=== PATIENT | female | born 1960 | race Caucasian/White ===

== ENCOUNTER 2021-02-22 07:39 | Outpatient (CLI) | payer MEDICAID, SELFPAY ==
--- NOTE | 2021-02-22 | XR_ITS ---
WS: [id number] Chest 2 views, 02/22/2021 Clinical Data: COPD MODERATE Comparison: PA and lateral chest, 03/03/2017. Findings: No nodules, masses or effusions are seen. The heart is enlarged. The pulmonary vascularity is not increased. No pneumonia or pneumothorax is seen. There is a hiatal hernia behind the heart. Th e aortic arch and descending aorta show calcification and tortuosity. There are left hilar and left l ower lobe calcifications. There are clips in the right upper quadrant from a cholecystectomy. XR/XR chest 2V* [id number] Impression: 1. Cardiomegaly and atherosclerosis. 2. Hiatal hernia.
== END 2021-02-22 07:40 | disposition home or self-care (01) ==
LOC: RADOUTREAD 02-23 07:41
PROVIDERS: PCP Family Medicine; Visit Provider Family Medicine
DX: J44.9 Chronic obstructive pulmonary disease, unspecified (principal); I51.7 Cardiomegaly; K44.9 Diaphragmatic hernia without obstruction or gangrene; I70.90 Unspecified atherosclerosis
CPT/HCPCS: 71046

== ENCOUNTER 2021-04-18 12:41 | Outpatient (CLI) | payer MEDICAID, SELFPAY ==
--- NOTE | 2021-04-18 12:48 | USCV_ITS ---
Wen Burch Age: 61 Gender: F : 1960 Exam Date: 04/18/2021 13:07 Ordering Phys: Jahaira Lu MD Technologist: Eri Wilder Exam Location: [facility] [place] Indication: CARDIOMEGALY, SOB BP: 120 / 80 HR: 76 Rhythm: Sinus Technical Quality: Technically difficult study MEASUREMENTS (Male / Female) Normal Values 2D ECHO LV Diastolic Diameter PLAX 4.6 cm 4.2 - 5.9 / 3.9 - 5.3 cm LV Systolic Diameter PLAX 2.9 cm IVS Diastolic Thickness 1.1 cm 0.6 - 1.0 / 0.6 - 0.9 cm IVS Systolic Thickness 1.9 cm LVPW Diastolic Thickness 1.2 cm 0.6 - 1.0 / 0.6 - 0.9 cm LVPW Systolic Thickness 1.7 cm LV Ejection Fraction 2D Teich 65.7 % LV Ejection Fraction MOD 2C 48.8 % LV Ejection Fraction 2C AL 49.2 % LA Diameter 3.5 cm LA Width 2.8 cm LA Height 3.6 cm RA Width 1.8 cm RA Height 3.4 cm Aorta at Sinotubular Diameter 2.8 cm DOPPLER AV Peak Velocity 156.0 cm/s LVOT Peak Velocity 75.0 cm/s MV Area PHT 3.3 cm squared Mitral E to A Ratio 0.7 MV E' Velocity 32.0 cm/s Mitral E to MV E' Ratio 8.0 Mitral E to LV E' Lateral Ratio 7.0 Mitral E to LV E' Septal Ratio 9.3 TR Peak Velocity 229.0 cm/s TR Peak Gradient 21.0 mmHg Right Atrial Pressure 3.0 mmHg Pulmonary Artery Systolic Pressu 24.0 mmHg FINDINGS Left Ventricle Normal left ventricular size. LV systolic function is normal with EF of 55-60%. No regional wall motion abnormalities. Sigmoid septal hypertrophy is seen. Grade 1 diastolic dysfunction Right Ventricle The right ventricle is normal in size and function. Right ventricular hypertrophy is seen. Right Atrium The right atrium is normal in size. Left Atrium The left atrium is normal in size. Mitral Valve Structurally normal mitral valve without significant stenosis or prolapse. There is trace mitral regurgitation. Aortic Valve Not well visualized. No significant stenosis. There is no aortic regurgitation. Tricuspid Valve Structurally normal tricuspid valve without significant stenosis or regurgitation. Insufficient TR jet to calculate RVSP Pulmonic Valve Grossly normal Pericardium Normal pericardium without effusion. Aorta Normal ascending aorta dimension. CONCLUSIONS LV systolic function is normal with EF of 55-60% Grade 1 diastolic dysfunction is noted. Sigmoid septal hypertrophy is seen RVH is present Trace mitral regurgitation No comparison studies are present Anatoliy Mccallum MD (Electronically Signed) Final Date: 23 April 2021 17:29 S
== END 2021-04-18 12:42 | disposition home or self-care (01) ==
LOC: RAD 12:44
PROVIDERS: PCP Family Medicine; Visit Provider Family Medicine
DX: I51.7 Cardiomegaly (principal); R06.02 Shortness of breath; I51.9 Heart disease, unspecified; I34.0 Nonrheumatic mitral (valve) insufficiency
CPT/HCPCS: 93306

== ENCOUNTER 2021-05-02 15:10 | Emergency (ER) | payer MEDICAID, SELFPAY ==
[2021-05-02 15:52] VITALS: BP 152/98; PULSE 73; RESP 18; TEMP 36.8; O2SAT 98; BMI 22.4
--- NOTE | 2021-05-02 16:31 | ECG_ITS ---
[facility] Test Date: 2021-05-02 Pat Name: Wen Burch Department: Room: Gender: Female Algebraist: : 1960 Requested By: Levon Villatoro Order Number: [id number] Rona MD: Ambar Pimentel M.D. Measurements Intervals [place] Rate: 73 P: 86 CT: 157 QRS: 5 QRSD: 74 T: 3 QT: 383 QTc: 422 Interpretive Statements SINUS RHYTHM LOW QRS VOLTAGE IN PRECORDIAL LEADS [QRS DEFLECTION < 1.0 mV IN CHEST LEADS] POSSIBLE RIGHT VENTRICULAR CONDUCTION DELAY [RSR (QR) IN V1/V2] MODERATE ST DEPRESSION [0.05+ mV ST DEPRESSION] Compared to ECG 03/03/2017 13:48:16 Low QRS voltage now present ST (T wave) deviation now present T-wave abnormality no longer present Possible ischemia no longer present Electronically Signed On 05-02-2021 21:39:41 CDT by Ambar Pimentel M.D. [email or web address].[email or web address]/[id number]
== END 2021-05-02 21:07 ==
PROVIDERS: Emergency Provider Family Medicine; PCP Family Medicine
DX: Z53.21 Procedure and treatment not carried out due to patient leaving prior to being seen by health care provider (principal)
CPT/HCPCS: 93005

== ENCOUNTER 2021-11-25 14:15 | Emergency (ER) | payer MEDICAID, SELFPAY ==
[2021-11-25] VITALS (8 sets, daily range): BP systolic 98–138; BP diastolic 76–108; PULSE 78–110; RESP 13–25; TEMP 36.7–36.8; O2SAT 93–99; BMI 22.4
--- NOTE | 2021-11-25 14:31 | ED_ITS ---
HPI - SOB/Dyspnea General: Chief Complaint: Shortness of Breath/Dyspnea Stated Complaint: sob, multiple complaints Time Seen by Provider: 11/25/21 14:31 History of Present Illness: HPI Narrative: Ms Burch is a 61-year-old lady with significant past medical history of hypertension and COPD who presents emergency department due to generalized symptoms. Symptom onset was gradual to 3 days ago. She initially had multiple episodes of diarrhea including some blood mixed in with her stool, she did have associated abdominal discomfort with it. She subsequently has developed generalized symptoms including chills, headache, muscle aches, pain behind her right shoulder blade, cough. Intensity of symptoms is moderate to severe. Course has been worsening. Denies sick contacts. She is not vaccinated against flu or Covid. No other specific change in health, exacerbating, relieving factors identified. Pertinent past history: COPD Onset (ago): day(s) Timing: progressively worsening Severity: moderate Exacerbating factors: nothing Relieving factors: nothing Review of Systems General: Reports: 10 or more systems reviewed and unremarkable except in HPI and below PFSH ED PFSH: Medical History COPD (chronic obstructive pulmonary disease) GERD (gastroesophageal reflux disease) HTN (hypertension) Smoker Surgical History Hx of appendectomy Hx of cholecystectomy Hx of hysterectomy Hx of oophorectomy Family History Father CAD (coronary artery disease) Mother CAD (coronary artery disease) Cancer Denies family history of Diabetes Stroke Social History Smoking and tobacco status: former smoker Alcohol intake: never Physical Exam Const: COMMON NORMALS: alert GENERAL APPEARANCE: cooperative, well developed and in distress HENMT: COMMON NORMALS: normocephalic and atraumatic HEAD & SCALP: normo cephalic and atraumatic THROAT: posterior oropharynx normal Eye: COMMON NORMALS: conjunctivae normal CONJUNCTIVA: Yes conjunctivae normal SCLERA: sclerae normal Neck/C-Spine: COMMON NORMALS: supple GENERAL: Yes trachea midline Resp: COMMON NORMALS: normal respiratory effort EFFORT & INSPECTION: Yes able to speak in complete sentences AUSCULTATION: rhonchi and diminished lung sounds Cardio: COMMON NORMALS: regular rate and regular rhythm RATE: regular rate RHYTHM: regular rhythm GI: COMMON NORMALS: Soft to palpation PALPATION: Yes Soft to palpation, Yes Tenderness to palpation present (GI), No Guarding due to palpation present (GI) and No Rigid due to palpation PERCUSSION: normal to percussion Extremity: GENERAL: Yes normal exam except as noted and No edema Neuro: COMMON NORMALS: moves all extremities SENSORIUM/ORIENTATION: Yes alert and No Orientation impaired Psych: COMMON NORMALS: mental status grossly normal and Normal thought process present THOUGHT PROCESS: Normal thought process present Course ED course: - Patient was seen and evaluated by me at bedside - Patient placed on cardiac monitors, IV access obtained - Initial evaluation notable for exam as above - Symptom treatment and breathing treatments ordered - Labs notable for mild leukocytosis. Metabolic panel with mild evidence of dehydration. CRP elevated with normal pro calcitonin. Urinalysis concerning for urinary tract infection. Viral studies negative. -Antibiotics given - Imaging notable for subtle hazy opacity at the left lung base similar to prior study. Vascular abnormalities as noted in CT abdomen pelvis were discussed with the patient, I do not believe that these are acute nor does radiology in discussion. Mucosal thickening versus under distention of the descending and rectosigmoid colon which is nonspecific. - Upon serial reexamination after treatment the patient was improved - Based on patient history, evaluation, labs, and imaging as interpreted the most likely cause of the patient's condition is multifactorial including urinary tract infection, possible colitis, possible pneumonia. Patient will be treated with antibiotics for colitis as this provides additional coverage regarding the other possible sources of infection - The results of ED evaluation were discussed with the patient including prescriptions and/or symptomatic cares (if applicable) including appropriate and responsible use, followup plan, and return precautions. The patient verbalized understanding and felt safe for discharge. - Patient discharged in satisfactory condition. Note: Click bubbles or prepopulated cruz in note writing are used for assistance with data collection and billing and are inherently more limited than narrative and other text portions of this note. Please use narrative for additional clinical history and defer to narrative/free test for any case of contradictory information. If information appears in only free text or click bubble it should be considered present or absent as reported. Please contact note policy writer for clarifications of clinical information or contradictory information. MDM is a brief summary, contradictory or erroneous seeming information should be clarified and full note should be reviewed. Vital Signs: Vital signs: Vital Signs Temperature 98.1 F 11/25/21 14:41 Pulse Rate 87 11/25/21 19:52 Respiratory Rate 15 11/25/21 19:52 Blood Pressure 138/108 11/25/21 19:52 Pulse Oximetry 95 11/25/21 19:52 MDM - SOB/Dyspnea Medical Decision Making 61-year-old lady with history of COPD presenting with viral symptoms in addition to abdominal pain with blood in stool. ED evaluation notable for multiple possible infections including possible colitis, possible pneumonia, and urinary tract infection. Patient will be treated outpatient with antibiotics as she was improved with treatment in the emergency department and tolerated p.o. intake Medical Records I reviewed the patient's medical records. Lab Data I reviewed the patient's lab results. : 11/25/21 15:19 11/25/21 15:55 Labs/Radiology: Radiology Impressions Chest X-Ray 11/25/21 14:57 IMPRESSION: 1. Subtle hazy opacity at the left lung base is similar to the prior study and may represent a benign pericardial fat pad. Atelectasis and or pneumonia are possibilities as well. 2. There is a moderate size hiatal hernia with an air-fluid level, also seen on the prior study. Abdomen/Pelvis CT 11/25/21 15:53 IMPRESSION: 1. Left common iliac artery is aneurysmal measuring 2.4 cm. No evidence for rupture. The left common iliac artery and left external iliac artery are occluded by thrombus. 2. Right common iliac artery is aneurysmal measuring 19 mm. No evidence for rupture. There is prominent atherosclerotic plaque in the region of aneurysm however no occlusion. 3. There is mucosal thickening versus under distention of the descending and rectosigmoid colon. Findings raise concern for a nonspecific colitis. Please correlate clinically. ADDENDUM: 11/25/21 [id number] CRITICAL RESULT: The study was personally discussed on the telephone with Med Ramsay on 11/25/2021 6:34 PM PHYSICIAN RELATIONS REPRESENTATIVE. The results were understood and acknowledged. Laboratory Results WBC 10.2 10^3/uL (4.0-10.0) H 11/25/21 15:19 RBC 4.69 10^6/uL (4.1-5.3) 11/25/21 15:19 Hgb 14.7 g/dL (11.5-15.3) 11/25/21 15:19 Hct 46.1 % (37.0-47.0) 11/25/21 15:19 MCV 98.3 fl (81-99) 11/25/21 15:19 MCH 31.3 pg (28.0-34.0) 11/25/21 15:19 MCHC 31.9 g/dL (30.0-36.0) 11/25/21 15:19 RDW 15.7 % (12.1-15.1) H 11/25/21 15:19 Plt Count 184 10^3/cmm (130-400) 11/25/21 15:19 MPV 10.5 fL (7.4-10.4) H 11/25/21 15:19 Neut % (Auto) 76.4 % 11/25/21 15:19 Lymph % (Auto) 8.0 % 11/25/21 15:19 Holt % (Auto) 13.9 % 11/25/21 15:19 Eos % (Auto) 0.7 % 11/25/21 15:19 Baso % (Auto) 0.3 % 11/25/21 15:19 Neut # (Auto) 7.81 10^3/uL (1.8-7.7) H 11/25/21 15:19 Lymph # (Auto) 0.8 10^3/uL (0.8-4.8) 11/25/21 15:19 Holt # (Auto) 1.4 10^3/uL (0.2-0.9) H 11/25/21 15:19 Eos # (Auto) 0.1 10^3/uL (0.0-0.8) 11/25/21 15:19 Baso # (Auto) 0.0 10^3/uL (0.0-0.1) 11/25/21 15:19 Nucleated RBC % (auto) 0 % 11/25/21 15:19 Nucleated RBCs # 0.0 /100WBC 11/25/21 15:19 Specimen Type Arterial 11/25/21 15:52 Sample Site Radial, right 11/25/21 15:52 ABG pH 7.51 (7.35-7.45) H 11/25/21 15:52 ABG pCO2 31.7 mmHg (35-45) L 11/25/21 15:52 ABG pO2 75.4 mmHg (80.0-100.0) L 11/25/21 15:52 ABG HCO3 25.0 mmol/L (22-26) 11/25/21 15:52 ABG Base Excess 2.5 mmol/L (-2.0-2.0) H 11/25/21 15:52 Mack Test Pos 11/25/21 15:52 Hematocrit 44.7 % (37-47) 11/25/21 15:52 O2 Delivery Device Room air 11/25/21 15:52 FiO2 21.0 % 11/25/21 15:52 Steel Crane Operator ID Monro 11/25/21 15:52 Sodium 138 mmol/L (136-145) 11/25/21 15:55 Potassium 3.7 mmol/L (3.5-5.1) 11/25/21 15:55 Chloride 102 mmol/L (98-107) 11/25/21 15:55 Carbon Dioxide 20 mmol/L (22-29) L 11/25/21 15:55 Anion Gap 19.7 (5-19) H 11/25/21 15:55 BUN 12 mg/dL (8-23) 11/25/21 15:55 Creatinine 0.7 mg/dL (0.5-0.9) 11/25/21 15:55 GFR Calculation 84.8 mL/min (90-130) L 11/25/21 15:55 Glucose 96 mg/dL (65-115) 11/25/21 15:55 Calculated Osmolality 286 mOsm/kg (285-295) 11/25/21 15:55 Lactic Acid 1.3 mmol/L (0.5-2.2) 11/25/21 19:39 Calcium 8.9 mg/dL (8.5-10.5) 11/25/21 15:55 Total Bilirubin 0.6 mg/dL (0.15-1.2) 11/25/21 15:55 AST 13 U/L (0-32) 11/25/21 15:55 ALT 9 U/L (0-33) 11/25/21 15:55 Alkaline Phosphatase 91 IU/L (35-105) 11/25/21 15:55 Troponin T Baseline 15 ng/L (0-10) H 11/25/21 15:55 Troponin T 120 Minute 14.72 ng/L (0-10) H 11/25/21 18:05 Delta Troponin T -0.28 ABS# (0-10) L 11/25/21 18:05 Troponin T Hi Sens 6Hr 19.91 ng/L (0-10) H 11/25/21 21:42 Troponin T Hi Sens 6Hr Delta 4.91 ng/L (0-12) 11/25/21 21:42 C-Reactive Protein 40.5 mg/L (0.0-4.9) H 11/25/21 15:55 Total Protein 6.3 g/dL (6.6-8.7) L 11/25/21 15:55 Albumin 3.5 g/dL (3.5-5.2) 11/25/21 15:55 Globulin 2.8 g/dL (1.3-4.6) 11/25/21 15:55 Lipase 29 U/L (13-60) 11/25/21 15:55 Procalcitonin 0.10 ng/mL (0-0.5) 11/25/21 15:55 Urine Color Dark yellow (Yellow) 11/25/21 16:30 Urine Appearance Cloudy (CLEAR) 11/25/21 16:30 Urine pH 5 (5-7) 11/25/21 16:30 Ur Specific Hollis 1.025 (1.005-1.030) 11/25/21 16:30 Urine Protein 1+ (Negative) H 11/25/21 16:30 Urine Glucose (UA) Norm (Normal) 11/25/21 16:30 Urine Ketones 1+ (Negative) H 11/25/21 16:30 Urine Blood 2+ (Negative) H 11/25/21 16:30 Urine Nitrate Positive (Negative) H 11/25/21 16:30 Urine Bilirubin 1+ (Negative) H 11/25/21 16:30 Urine Urobilinogen 4 mg/dL (Negative) H 11/25/21 16:30 Ur Leukocyte Esterase 1+ (Negative) H 11/25/21 16:30 Urine RBC 0-4 /hpf (0-2) H 11/25/21 16:30 Urine WBC 15-25 /hpf (0-5) H 11/25/21 16:30 Ur Squamous Epith Cells 0-4 /hpf (0-5) H 11/25/21 16:30 Amorphous Sediment Not Reportable 11/25/21 16:30 Urine Bacteria 3+ /hpf (NONE) H 11/25/21 16:30 Influenza Type A Ag Negative (Negative) 11/25/21 15:12 Influenza Type B Ag Negative (Negative) 11/25/21 15:12 SARS-CoV-2 Ag (Rapid) Negative (Negative) 11/25/21 15:12 EKG Data EKG 1: I personally reviewed and interpreted this EKG as follows: EKG Interpretation Date: 11/25/21 EKG interpretation time: 15:51 Interpretation: Twelve-lead EKG shows a regular rhythm at a rate of 96. HI interval 143, QRS duration 82, QTc 405. Normal axis. Interpretation: Sinus rhythm. Nonspecific QRS complex abnormality EKG 2: I personally reviewed and interpreted this EKG as follows: EKG Interpretation Date: 11/25/21 EKG interpretation time: 21:02 Interpretation: Twelve-lead EKG shows a regular rhythm at a rate of 75. HI interval 154, QRS duration 84, QTc 432. Normal axis. Interpretation: Sinus rhythm. QRS complex abnormality. Discharge Plan Discharge Patient Disposition: Home Clinical Impression: UTI (urinary tract infection), Diarrhea, Abdominal pain, Colitis, Iliac artery occlusion, left, Bilateral iliac artery aneurysm Condition: Stable Prescriptions: New ciprofloxacin HCl 500 mg tablet 500 mg PO BID Qty: 10 0RF Flagyl 500 mg tablet 500 mg PO TID Qty: 15 0RF No Action lisinopril 40 mg tablet 40 mg PO DAILY 0RF Discharge Orders: Discharge ED (Routine); Ordered 11/25/21 Ordered By: Med Hooks Referrals: Jahaira Lu MD [Primary Care Provider] - Discharge Diet: Usual diet Discharge Activity: Resume usual activity Patient Instructions: Urinary Tract Infection in Women (ED), Peripheral Artery Disease (ED), Abdominal Pain (ED), Colitis (ED) Activity Restrictions/Additional Instructions: Thank you for visiting the emergency department. You were seen and evaluated for diarrhea and generalized symptoms. You likely have colitis in combination with a urinary tract infection which will be treated with antibiotics. You have the following incidental findings which require follow-up. 1. Left common iliac artery is aneurysmal measuring 2.4 cm. No evidence for rupture. The left common iliac artery and left external iliac artery are occluded by thrombus. 2. Right common iliac artery is aneurysmal measuring 19 mm. No evidence for rupture. There is prominent atherosclerotic plaque in the region of aneurysm however no occlusion. Please follow-up with your primary care provider. Please return to the emergency department for fail to improve, worsening symptoms, sudden sensory or motor changes in your lower extremities, worsening pain with ambulation, abdominal pain, or anything else that you are concerned about and feel needs emergency department evaluation. Coding Level of Care Code ED Senior Receptionist for Catracho Fwd Exam Comprehensive
--- NOTE | 2021-11-25 14:57 | ECG_ITS ---
[facility] Test Date: 2021-11-25 Pat Name: Wen Burch Department: Room: Gender: Female Chief Clinical Officer: : 1960 Requested By: Med Hooks Order Number: [id number] Rona MD: Ambar Pimentel M.D. Measurements Intervals [place] Rate: 99 P: 43 DE: 146 QRS: 11 QRSD: 71 T: -8 QT: 338 QTc: 434 Interpretive Statements SINUS RHYTHM POSSIBLE RIGHT VENTRICULAR CONDUCTION DELAY [RSR (QR) IN V1/V2] NONSPECIFIC ST & T-WAVE ABNORMALITY Compared to ECG 05/02/2021 16:52:12 T-wave abnormality now present ST (T wave) deviation no longer present Electronically Signed On 11-25-2021 16:57:07 SLURRY MAN by Ambar Pimentel M.D. [id number]
--- NOTE | 2021-11-25 14:57 | XRR_ITS ---
PROCEDURE INFORMATION: Exam: XR Chest Exam date and time: 11/25/2021 2:57 PM Age: 61 years old Clinical indication: Pain; Chest pressure; Additional info: Chest pain TECHNIQUE: Imaging protocol: XR of the chest. Views: 1 view. COMPARISON: CR XR chest 2V* [id number] 02/22/2021 3:06 PM FINDINGS: Lungs: There is subtle hazy opacity at the lateral aspect of the left lung base, similar to the prior study. There is scarring or atelectasis at the right perihilar region. Pleural spaces: Left costophrenic angle is obscured and a small pleural effusion cannot be excluded. Heart/Mediastinum: There is a moderate size hiatal hernia with an air-fluid level, also seen on the prior study. Bones/joints: Unremarkable. XR/XR chest 1V portable [id number] IMPRESSION: 1. Subtle hazy opacity at the left lung base is similar to the prior study and may represent a benign pericardial fat pad. Atelectasis and or pneumonia are possibilities as well. 2. There is a moderate size hiatal hernia with an air-fluid level, also seen on the prior study.
[2021-11-25 15:38] LABS: Influenza A by IFA Negative (Negative); Influenza B by IFA Negative (Negative); SARS Covid-2 Antigen Negative (Negative)
[2021-11-25 15:45] LABS: Basophils % 0.3 %; Eosinophils # 0.1 10^3/uL (0.0-0.8); Eosinophils % 0.7 %; Hematocrit 46.1 % (37.0-47.0); Hemoglobin 14.7 g/dL (11.5-15.3); Lymphocytes # 0.8 10^3/uL (0.8-4.8); Mean Corpuscular HGB Conc 31.9 g/dL (30.0-36.0); Mean Corpuscular Hemoglobin 31.3 pg (28.0-34.0); Mean Corpuscular Volume 98.3 fl (81-99); Mean Platelet Volume 10.5 fL (7.4-10.4); Monocytes # 1.4 10^3/uL (0.2-0.9); Monocytes % 13.9 %; Neutrophils # 7.81 10^3/uL (1.8-7.7); Neutrophils % 76.4 %; Nucleated Red Blood Cells % 0 %; Platelet Count 184 10^3/cmm (130-400); Red Blood Count 4.69 10^6/uL (4.1-5.3); Red Cell Distribution Width 15.7 % (12.1-15.1); White Blood Count 10.2 10^3/uL (4.0-10.0)
--- NOTE | 2021-11-25 15:53 | CTR_ITS ---
PROCEDURE INFORMATION: Exam: CT Abdomen And Pelvis With Contrast Exam date and time: 11/25/2021 3:53 PM Age: 61 years old Clinical indication: Abdominal pain; Generalized; Patient HX: Had to scan twice PT started vomiting; Additional info: Abdominal pain, blood in stool, ? diverticulitis/colitis TECHNIQUE: Imaging protocol: Computed tomography of the abdomen and pelvis with contrast. Radiation optimization: All CT scans at this facility use at least one of these dose optimization techniques: automated exposure control; mA and/or kV adjustment per patient size (includes targeted exams where dose is matched to clinical indication); or iterative reconstruction. Contrast material: OMNI 300; Contrast volume: 95 ml; Contrast route: INTRAVENOUS (IV); COMPARISON: CT abdomen pelvis w con* [id number] 05/17/2019 12:47 PM RADIATION DOSE METRICS: Total DLP (mGy-cm): 1702.09 FINDINGS: Lungs: There is scarring and/or atelectasis at the right lung base.There are pulmonary parenchymal calcifications consistent with remote granulomatous organism exposure. Heart: Multivessel atherosclerotic disease which involves the coronary arteries. Cardiomegaly. Diaphragm: Moderate size hiatal hernia. Liver: Normal. No mass. Gallbladder and bile ducts: The gallbladder has been removed. Pancreas: Normal. No ductal dilation. Spleen: Small incidental splenule. Adrenal glands: Normal. No mass. Kidneys and ureters: Normal. No hydronephrosis. Stomach and bowel: There is diverticulosis of the colon without evidence of diverticulitis. There is mucosal thickening versus under distention of the descending and rectosigmoid colon. Appendix: No evidence of appendicitis. Intraperitoneal space: Unremarkable. No free air. No significant fluid collection. Vasculature: There is prominent atherosclerotic plaque in the abdominal aorta with regions of moderate narrowing. Infrarenal abdominal aorta is ectatic measuring 2.7 cm in the transverse dimension. Left common iliac artery is aneurysmal measuring 2.4 cm. The left common iliac artery and left external iliac artery are occluded by thrombus. Right common iliac artery is aneurysmal measuring 19 mm. There is prominent atherosclerotic plaque in the region of aneurysm however no occlusion. Lymph nodes: Unremarkable. No enlarged lymph nodes. Urinary bladder: Unremarkable as visualized. Reproductive: The uterus is not visualized, consistent with hysterectomy. Bones/joints: Mild lower thoracic/lumbar levoscoliosis. There are degenerative changes in the visualized spine. Multilevel lumbar disc bulges. Soft tissues: Unremarkable. Other findings: Motion artifact does moderately limit the sensitivity of this examination. CT/CT abdomen pelvis w con* [id number] IMPRESSION: 1. Left common iliac artery is aneurysmal measuring 2.4 cm. No evidence for rupture. The left common iliac artery and left external iliac artery are occluded by thrombus. 2. Right common iliac artery is aneurysmal measuring 19 mm. No evidence for rupture. There is prominent atherosclerotic plaque in the region of aneurysm however no occlusion. 3. There is mucosal thickening versus under distention of the descending and rectosigmoid colon. Findings raise concern for a nonspecific colitis. Please correlate clinically.
[2021-11-25] MEDS: sodium chloride 0.9% 500 ML IV (15:57)
[2021-11-25 16:04] LABS: ABG PCO2 31.7 mmHg (35-45); ABG PH Result 7.51 (7.35-7.45); Arterial Blood Gas Hematocrit 44.7 % (37-47); Base Excess ABG 2.5 mmol/L (-2.0-2.0); Blood Gas Allen Test Pos; Blood Gas Operator Identificat MONRO; Blood Gas Sample Site Radial, right; Blood Gas Sample Type Arterial; Oxygen Device ROOM AIR; PO2 ABG 75.4 mmHg (80.0-100.0)
[2021-11-25] MEDS: ipratropium-albuterol 3 mL Neb INHALATION (16:12)
[2021-11-25 16:29] LABS: Troponin(5th) Baseline 15 ng/L (0-10)
[2021-11-25 16:30] LABS: Alanine Aminotransferase 9 U/L (0-33); Albumin Level 3.5 g/dL (3.5-5.2); Alkaline Phosphatase 91 IU/L (35-105); Aspartate Amino Transferase 13 U/L (0-32); Blood Urea Nitrogen 12 mg/dL (8-23); C Reactive Protein 40.5 mg/L (0.0-4.9); Calcium 8.9 mg/dL (8.5-10.5); Carbon Dioxide 20 mmol/L (22-29); Chloride 102 mmol/L (98-107); Globulin 2.8 g/dL (1.3-4.6); Glomerular Filtration Rate 84.8 mL/min (90-130); Glucose 96 mg/dL (65-115); Lipase 29 U/L (13-60); Osmolality Calculated 286 mOsm/kg (285-295); Potassium 3.7 mmol/L (3.5-5.1); Sodium 138 mmol/L (136-145); Total Bilirubin 0.6 mg/dL (0.15-1.2); Total Protein 6.3 g/dL (6.6-8.7)
[2021-11-25 16:44] LABS: Anion Gap 19.7 (5-19)
--- NOTE | 2021-11-25 16:57 | ECG_ITS ---
[facility] Test Date: 2021-11-25 Pat Name: Wen Burch Department: Room: Gender: Female Regulator Assembler: : 1960 Requested By: Med Hooks Order Number: [id number] Roan MD: Ambar Pimentel M.D. Measurements Intervals [place] Rate: 96 P: 41 [place]: 143 QRS: 6 QRSD: 82 T: -4 QT: 352 QTc: 445 Interpretive Statements SINUS RHYTHM POSSIBLE RIGHT VENTRICULAR CONDUCTION DELAY [RSR (QR) IN V1/V2] MODERATE ST DEPRESSION [0.05+ mV ST DEPRESSION] Compared to ECG 11/25/2021 15:43:51 ST (T wave) deviation now present T-wave abnormality no longer present Electronically Signed On 11-25-2021 17:02:45 DISTRIBUTOR OPERATOR by Ambar Pimentel M.D. [email or web address].[employer]/store/[id number]
[2021-11-25] MEDS: iohexol 300 mg/mL 100 mL Btl IV (17:23)
[2021-11-25 17:27] LABS: Urine Color Dark Yellow (Yellow)
[2021-11-25 17:28] LABS: Add Urine Microscopic? YES; Bilirubin Urine 1+ (Negative); Blood Urine 2+ (Negative); Glucose Urine UA Norm (Normal); Ketones Urine 1+ (Negative); Leukocyte Esterase Urine 1+ (Negative); Nitrate Urine Positive (Negative); Protein Urine 1+ (Negative); Specific Gravity, Urine 1.025 (1.005-1.030); Urine Appearance Cloudy (CLEAR); Urobilinogen Urine 4 mg/dL (Negative); pH Urine 5 (5-7)
[2021-11-25 17:29] LABS: Add Urine Culture? Yes; Bacteria Urine 3+ /hpf; RBC Urine 0-4 /hpf (0-2); Squamous Epithelial Cell Urine 0-4 /hpf (0-5); WBC Urine 15-25 /hpf (0-5)
--- NOTE | 2021-11-25 18:25 | PC.NURSE ---
Catheter intact. Patient pulled out IV. When I entered the room, patient reported it was awhile ago. Patient no longer bleeding at this time.
[2021-11-25 18:40] LABS: Troponin 5 2HR 14.72 ng/L (0-10)
[2021-11-25 18:50] LABS: Troponin 5 2HR Delta -0.28 ABS# (0-10)
[2021-11-25 20:24] LABS: Lactic Sepsis W/Reflex 1.3 mmol/L (0.5-2.2)
[2021-11-25] MEDS: sodium chloride 0.9% 500 ML 999 ML IV (20:25)
[2021-11-25] MEDS: piperacillin-tazobactam 3.375 GM in sodium chloride 0.9% (plus) 50 ML IV (20:25)
[2021-11-25] MEDS: fentaNYL 50 mcg/mL INJ 2mL IVP (20:26)
[2021-11-25] MEDS: ketorolac 30 mg/mL INJ 15 MG IVP (20:29)
[2021-11-25] MEDS: acetaminophen 500 mg Tablet 1000 MG PO (20:30)
--- NOTE | 2021-11-25 20:57 | ECG_ITS ---
[facility] Test Date: 2021-11-25 Pat Name: Wen Burch Department: Room: Gender: Female Software Systems Analyst: : 1960 Requested By: Med [employer]s Order Number: [id number] Rona MD: Ambar Pimentel M.D. Measurements Intervals [place] Rate: 75 P: 83 CA: 154 QRS: 25 QRSD: 84 T: 49 QT: 404 QTc: 452 Interpretive Statements SINUS RHYTHM POSSIBLE RIGHT VENTRICULAR CONDUCTION DELAY [RSR (QR) IN V1/V2] NONSPECIFIC ST & T-WAVE ABNORMALITY Compared to ECG 11/25/2021 15:45:24 T-wave abnormality now present ST (T wave) deviation no longer present Electronically Signed On 11-26-2021 8:47:23 COBOL ENGINEER by Ambar Pimentel M.D. [id number]
[2021-11-25 22:07] LABS: Troponin 5 6HR 19.91 ng/L (0-10)
[2021-11-25 22:12] LABS: Troponin 5 6HR Delta 4.91 ng/L (0-12)
--- NOTE | 2021-11-27 12:45 | DCPLANNER ---
Addendum entered by Shayla Brink 12/10/21 15:56: Patient had a follow up appointment scheduled for 12.04.21 with [facility] - patient did not attend appointment. Original Note: social media sr strategy manager had message to schedule a follow up appointment for patient with [facility]. social media sr strategy manager called [facility], spoke with Zakia, gave clinic patients information. A follow up appointment was scheduled for 12.04.21 at 11:[address] Pimentel. social media sr strategy manager called patient, unable to speak with patient at this time, a voicemail was left for patient to return renal case manager phone call.
== END 2021-11-25 22:32 | disposition home or self-care (01) ==
PROVIDERS: Emergency Provider Emergency Medicine; PCP Family Medicine
DX: N39.0 Urinary tract infection, site not specified (principal); K52.9 Noninfective gastroenteritis and colitis, unspecified; I74.5 Embolism and thrombosis of iliac artery; I72.3 Aneurysm of iliac artery; J44.9 Chronic obstructive pulmonary disease, unspecified; I10 Essential (primary) hypertension; Z87.891 Personal history of nicotine dependence; Z20.822 Contact with and (suspected) exposure to COVID-19
CPT/HCPCS: 36415; 36600; 71045; 74177; 80053; 81001; 82803; 83605; 83690; 84145; 84484; 85025; 86140; 87040; 87077; 87086; 87186; 87426; 87804; 93005; 94640; 96365; 96375; 99284; J1885; J2543; J3010; J7040; Q9967

== ENCOUNTER 2022-05-19 12:10 | Inpatient (IN) | payer MEDICAID, SELFPAY ==
[2022-05-19 12:26] VITALS: BP 135/112; RESP 22; BMI 27.4
--- NOTE | 2022-05-19 13:02 | W.ED.GIBLEED ---
HPI - GI Bleed General: Chief complaint: GI Bleed Stated complaint: Bloody Stool, Weakness Time Seen by Provider: 05/19/22 12:28 History of Present Illness: 62-year-old female presents with diarrhea for 24 hours that is got some blood in it. Fever, generalized weakness, chills. Patient reports a history of prior C. difficile and states it feels similar to that. Patient denies any vomiting. No cough, shortness of breath. She does complains of some diffuse abdominal pain that is greatest in the lower regions. Associated symptoms: Reports abdominal pain, chills, fever(s), malaise and nausea; Denies rash or vomiting Review of Systems Const: Reports: fever(s), chills and malaise Eyes: Denies: change in vision or eye discharge ENMT: Denies: throat pain or ear or mastoid pain Card: Denies: chest pain, palpitations or lightheadedness Resp: Denies: dyspnea, productive cough, non-productive cough or wheezing GI: Reports: abdominal pain, nausea, diarrhea and hematochezia; Denies: vomiting : Denies: flank pain or dysuria Musc: Reports: neck pain; Denies: back pain or extremity swelling Skin/Breast: Denies: rash Psych: Denies: anxiety or depression All/Imm: Denies: urticaria or throat swelling PFSH ED PFSH: Medical History COPD (chronic obstructive pulmonary disease) GERD (gastroesophageal reflux disease) HTN (hypertension) Smoker Surgical History Hx of appendectomy Hx of cholecystectomy Hx of hysterectomy Hx of oophorectomy Family History Father CAD (coronary artery disease) Mother CAD (coronary artery disease) Cancer Denies family history of Diabetes Stroke Social History Smoking and tobacco status: former smoker Alcohol intake: never Physical Exam Const: COMMON NORMALS: patient oriented x3 GENERAL APPEARANCE: disheveled and frail appearing HENMT: COMMON NORMALS: normocephalic and hearing grossly normal bilaterally HEAD & SCALP: normocephalic Eye: COMMON NORMALS: EOMs intact bilaterally GENERAL EYE: appearance normal, both eyes and all related structures Neck/C-Spine: COMMON NORMALS: full ROM and supple Resp: COMMON NORMALS: normal respiratory effort, No use of accessory muscles and clear to auscultation bilaterally AUSCULTATION: clear to auscultation bilaterally Cardio: COMMON NORMALS: regular rate and regular rhythm RATE: regular rate RHYTHM: regular rhythm GI: COMMON NORMALS: Soft to palpation PALPATION: Yes Soft to palpation and Yes Tenderness to palpation present (GI) (Diffuse) Extremity: COMMON NORMALS: normal to inspection and capillary refill normal Neuro: COMMON NORMALS: patient oriented x3, moves all extremities and no focal motor deficits Psych: COMMON NORMALS: mental status grossly normal and speech normal SPEECH: Yes normal speech Skin: COMMON NORMALS: no rashes or lesions noted GENERAL SKIN EXAM: no rashes or lesions noted Course Vital Signs: Vital signs: Vital Signs Respiratory Rate 22 H 05/19/22 12:26 Blood Pressure 135/112 05/19/22 12:26 MDM - GI Bleed Medical Decision Making Patient with elevated white count, CRP and procalcitonin. Patient with a 3.8 lactic likely due to some dehydration with an increased BUN at 30 and creatinine 2.0 above her baseline creatinine is 0.8. Patient C. difficile is pending. I did treat her with Vanco and Zosyn due to her history of C. difficile and elevated white count CRP and diarrheal illness. Patient was given some IV fluids. She does feel significantly better following treatment. We will admit her in the hospital for further work-up, IV fluids and IV antibiotics as indicated. Patient to be admitted to Dr. Brown hospitalist. Patient was stable upon admission Lab Data : 05/19/22 13:37 05/19/22 13:37 Radiology Impressions Abdomen/Pelvis CT 05/19/22 14:18 IMPRESSION: 1. Early colonic diverticular formation. No acute bowel findings otherwise. Somewhat limited exam due to lack of contrast. 2. Prominent hiatal hernia and probable GE reflux. 3. Cardiopulmonary findings as above. 4. Minimal distal aortic ectasia and other nonacute findings as described. Laboratory Results WBC 12.3 10^3/uL (4.0-10.0) H 05/19/22 13:37 RBC 5.80 10^6/uL (4.1-5.3) H 05/19/22 13:37 Hgb 17.7 g/dL (11.5-15.3) H 05/19/22 13:37 Hct 54.4 % (37.0-47.0) H 05/19/22 13:37 MCV 93.8 fl (81-99) 05/19/22 13:37 MCH 30.5 pg (28.0-34.0) 05/19/22 13:37 MCHC 32.5 g/dL (30.0-36.0) 05/19/22 13:37 RDW 15.8 % (12.1-15.1) H 05/19/22 13:37 Plt Count 218 10^3/cmm (130-400) 05/19/22 13:37 MPV 10.6 fL (7.4-10.4) H 05/19/22 13:37 Neut % (Auto) 87.3 % 05/19/22 13:37 Lymph % (Auto) 3.7 % 05/19/22 13:37 [place] % (Auto) 8.1 % 05/19/22 13:37 Eos % (Auto) 0.1 % 05/19/22 13:37 Baso % (Auto) 0.2 % 05/19/22 13:37 Neut # (Auto) 10.74 10^3/uL (1.8-7.7) H 05/19/22 13:37 Lymph # (Auto) 0.5 10^3/uL (0.8-4.8) L 05/19/22 13:37 [place] # (Auto) 1.0 10^3/uL (0.2-0.9) H 05/19/22 13:37 Eos # (Auto) 0.0 10^3/uL (0.0-0.8) 05/19/22 13:37 Baso # (Auto) 0.0 10^3/uL (0.0-0.1) 05/19/22 13:37 Nucleated RBC % (auto) 0 % 05/19/22 13:37 Nucleated RBCs # 0.0 /100WBC 05/19/22 13:37 Sodium 133 mmol/L (136-145) L 05/19/22 13:37 Potassium 4.3 mmol/L (3.5-5.1) 05/19/22 13:37 Chloride 92 mmol/L (98-107) L 05/19/22 13:37 Carbon Dioxide 20 mmol/L (22-29) L 05/19/22 13:37 Anion Gap 25.3 (5-19) H 05/19/22 13:37 BUN 30 mg/dL (8-23) H 05/19/22 13:37 Creatinine 2.0 mg/dL (0.5-0.9) H 05/19/22 13:37 GFR Calculation 25.2 mL/min (90-130) L 05/19/22 13:37 Glucose 171 mg/dL (65-115) H 05/19/22 13:37 Calculated Osmolality 286 mOsm/kg (285-295) 05/19/22 13:37 Lactate 3.8 mmol/L (0.5-2.2) H 05/19/22 13:37 Calcium 9.1 mg/dL (8.5-10.5) 05/19/22 13:37 Magnesium 2.0 mg/dL (1.7-2.3) 05/19/22 13:37 Total Bilirubin 0.4 mg/dL (0.15-1.2) 05/19/22 13:37 AST 73 U/L (0-32) H 05/19/22 13:37 ALT 20 U/L (0-33) 05/19/22 13:37 Alkaline Phosphatase 118 IU/L (35-105) H 05/19/22 13:37 C-Reactive Protein 10.6 mg/L (0.0-4.9) H 05/19/22 13:37 Total Protein 8.0 g/dL (6.6-8.7) 05/19/22 13:37 Albumin 3.9 g/dL (3.5-5.2) 05/19/22 13:37 Globulin 4.1 g/dL (1.3-4.6) 05/19/22 13:37 Procalcitonin 3.43 ng/mL (0-0.5) H 05/19/22 13:37 Urine Color Yellow (Yellow) 05/19/22 15:19 Urine Appearance Hazy (CLEAR) A 05/19/22 15:19 Urine pH 6 (5-7) 05/19/22 15:19 Ur Specific [place] 1.010 (1.005-1.030) 05/19/22 15:19 Urine Protein Trace (Negative) 05/19/22 15:19 Urine Glucose (UA) Norm (Normal) 05/19/22 15:19 Urine Ketones Negative (Negative) 05/19/22 15:19 Urine Blood 3+ (Negative) H 05/19/22 15:19 Urine Nitrate Negative (Negative) 05/19/22 15:19 Urine Bilirubin Neg (Negative) 05/19/22 15:19 Urine Urobilinogen Norm mg/dL (Negative) 05/19/22 15:19 Ur Leukocyte Esterase Trace (Negative) H 05/19/22 15:19 Urine RBC 5-10 /hpf (0-2) H 05/19/22 15:19 Urine WBC 5-10 /hpf (0-5) H 05/19/22 15:19 Ur Squamous Epith Cells 0-4 /hpf (0-5) H 05/19/22 15:19 Amorphous Sediment Not Reportable 05/19/22 15:19 Urine Bacteria 2+ /hpf (NONE) H 05/19/22 15:19 Hyaline Casts 0-4 /lpf H 05/19/22 15:19 Coarse Granular Casts 5-10 /lpf H 05/19/22 15:19 Urine Mucus 1+ /hpf 05/19/22 15:19 Discharge Plan Discharge Patient Disposition: Admitted As Inpatient Clinical Impression: Infectious diarrhea Condition: Stable Coding Level of Care Code ED Inside Solar Sales Consultant for [employer] Fwd Exam Comprehensive
[2022-05-19] MEDS: sodium chloride 0.9% 1,000 ML 999 ML IV ×2 (13:45→14:44)
[2022-05-19 13:47] LABS: Basophils % 0.2 %; Eosinophils % 0.1 %; Hematocrit 54.4 % (37.0-47.0); Hemoglobin 17.7 g/dL (11.5-15.3); Lymphocytes # 0.5 10^3/uL (0.8-4.8); Lymphocytes % 3.7 %; Mean Corpuscular HGB Conc 32.5 g/dL (30.0-36.0); Mean Corpuscular Hemoglobin 30.5 pg (28.0-34.0); Mean Corpuscular Volume 93.8 fl (81-99); Mean Platelet Volume 10.6 fL (7.4-10.4); Monocytes % 8.1 %; Neutrophils # 10.74 10^3/uL (1.8-7.7); Neutrophils % 87.3 %; Nucleated Red Blood Cells % 0 %; Platelet Count 218 10^3/cmm (130-400); Red Cell Distribution Width 15.8 % (12.1-15.1); White Blood Count 12.3 10^3/uL (4.0-10.0)
[2022-05-19 14:10] LABS: Lactate (Lactic Acid level) 3.8 mmol/L (0.5-2.2)
[2022-05-19 14:12] LABS: Alanine Aminotransferase 20 U/L (0-33); Albumin Level 3.9 g/dL (3.5-5.2); Alkaline Phosphatase 118 IU/L (35-105); Anion Gap 25.3 (5-19); Aspartate Amino Transferase 73 U/L (0-32); Blood Urea Nitrogen 30 mg/dL (8-23); C Reactive Protein 10.6 mg/L (0.0-4.9); Calcium 9.1 mg/dL (8.5-10.5); Carbon Dioxide 20 mmol/L (22-29); Chloride 92 mmol/L (98-107); Globulin 4.1 g/dL (1.3-4.6); Glomerular Filtration Rate 25.2 mL/min (90-130); Glucose 171 mg/dL (65-115); Osmolality Calculated 286 mOsm/kg (285-295); Potassium 4.3 mmol/L (3.5-5.1); Sodium 133 mmol/L (136-145); Total Bilirubin 0.4 mg/dL (0.15-1.2)
--- NOTE | 2022-05-19 14:18 | CTR_ITS ---
PROCEDURE INFORMATION: Exam: CT Abdomen And Pelvis Without Contrast Exam date and time: 05/19/2022 3:17 PM Age: 62 years old Clinical indication: Abdominal pain; Generalized; Prior surgery; Surgery date: 6+ months; Surgery type: Gb, appy, hyst, ooph; Patient HX: C/O diffuse abd pain w bloody diarrhea; Additional info: Abdominal pain, fever , TECHNIQUE: Imaging protocol: Computed tomography of the abdomen and pelvis without contrast. Radiation optimization: All CT scans at this facility use at least one of these dose optimization techniques: automated exposure control; mA and/or kV adjustment per patient size (includes targeted exams where dose is matched to clinical indication); or iterative reconstruction. COMPARISON: CT abdomen pelvis w con* [id number] 11/25/2021 5:18 PM RADIATION DOSE METRICS: Total DLP (mGy-cm): 337.51 FINDINGS: Lungs: Minimal central peribronchial thickening and bronchiectasis. No consolidation. Tiny linear scarring-atelectasis both lung bases. Tiny thin-walled lung cyst in the right lung base measuring 9 mm. Calcified granuloma posterior left lung base. Heart: Normal heart size with coronary calcification. Somewhat prominent epicardial fat resulting in enlarged cardiac silhouette on the sports medicine trainer image. Liver: Normal. No mass. Gallbladder and bile ducts: Cholecystectomy clips. No abnormal bile duct dilatation. Pancreas: Normal. No ductal dilation. Spleen: Normal. No splenomegaly. Adrenal glands: Normal. No mass. Kidneys and ureters: No obstructing calculus. No hydronephrosis. Stomach and bowel: Prominent hiatal hernia measuring about 7 cm containing about proximal 1/3 of the stomach. Partially visualized esophageal is probably slightly distended due to fluid and may be related to gastroesophageal reflux. Small to moderate amount of fecal retention. No obvious bowel dilatation, pneumatosis or suspicious bowel wall thickening however assessment is limited due to lack of contrast. Colonic diverticulosis. Appendix: No evidence of appendicitis. Intraperitoneal space: Unremarkable. No free air. No significant fluid collection. Vasculature: Minimal diffuse ectasia of distal aorta at 2.7 cm. Suprarenal aorta measures 2.3 cm. Lymph nodes: No enlarged lymph nodes. Urinary bladder: Unremarkable as visualized. Reproductive: Unremarkable as visualized. Bones/joints: Slight leftward lumbar spine scoliosis. Multilevel vertebral disc degeneration and endplate osteophytes. No acute osseous findings otherwise. Soft tissues: No acute findings. CT/CT abdomen pelvis wo con [id number] IMPRESSION: 1. Early colonic diverticular formation. No acute bowel findings otherwise. Somewhat limited exam due to lack of contrast. 2. Prominent hiatal hernia and probable GE reflux. 3. Cardiopulmonary findings as above. 4. Minimal distal aortic ectasia and other nonacute findings as described.
[2022-05-19 14:19] LABS: Procalcitonin 3.43 ng/mL (0-0.5)
[2022-05-19] MEDS: piperacillin-tazobactam 3.375 GM in sodium chloride 0.9% (plus) 50 ML IV ×2 (14:44→21:49)
[2022-05-19] MEDS: vancomycin 1,000 MG in sodium chloride 0.9% 250 ML 250 MG IV (15:28)
[2022-05-19 15:55] LABS: Add Urine Microscopic? YES; Bilirubin Urine Neg (Negative); Blood Urine 3+ (Negative); Glucose Urine UA Norm (Normal); Ketones Urine Negative (Negative); Leukocyte Esterase Urine Trace (Negative); Nitrate Urine Negative (Negative); Protein Urine Trace (Negative); Urine Appearance Hazy (CLEAR); Urine Color Yellow (Yellow); Urobilinogen Urine Norm (Negative); pH Urine 6 (5-7)
[2022-05-19 15:58] LABS: Bacteria Urine 2+ /hpf; Hyaline Casts Urine 0-4 /lpf; Mucus Urine 1+ /hpf; Squamous Epithelial Cell Urine 0-4 /hpf (0-5)
[2022-05-19 15:59] LABS: Add Urine Culture? Yes
[2022-05-19] MEDS: sodium chloride 0.9% 1,000 ML 100 ML IV ×2 (16:52→21:48)
[2022-05-19 17:00] VITALS: BP 144/94; PULSE 98; O2SAT 99
--- NOTE | 2022-05-19 17:20 | P.HP_ITS ---
Providers/Chief Complaint Primary Care Provider: Jahaira Lu MD Chief Complaint: Bloody Stool, Weakness History of Present Illness Wen Burch is a 62 year old female with a past medical history of chronic tension, GERD, history of C. difficile infection, history of cholecystectomy, who presents presents [facility] due to complaints of diffuse abdominal pain, diarrhea, bloody stools. Patient tells me that she has been feeling well recently, reports fevers, chills, no nausea, no vomiting able to keep down liquids, she has been having some nonspecific abdominal pain, no recent antibiotic use, recent surgeries, she today started develop bloody stools, no black stools, no nausea, no vomiting, no lightheaded, dizziness. Review of Systems Const: Denies: fever(s) Card: Denies: chest pain GI: Reports: abdominal pain and hematochezia; Denies: nausea Medications/Allergies Home Medications Medication Instructions Recorded Confirmed Last Taken Type lisinopril 40 mg tablet 40 mg PO DAILY 11/27/19 05/19/22 05/19/22 History Allergies Allergy/AdvReac Type Severity Reaction Status Date / Time codeine Allergy rash Verified 06/18/21 14:08 PFSH Acute PFSH: Medical History COPD (chronic obstructive pulmonary disease) GERD (gastroesophageal reflux disease) HTN (hypertension) Smoker Surgical History Hx of appendectomy Hx of cholecystectomy Hx of hysterectomy Hx of oophorectomy Family History Father CAD (coronary artery disease) Mother CAD (coronary artery disease) Cancer Denies family history of Diabetes Stroke Social History Smoking and tobacco status: former smoker Alcohol intake: never Vitals/I&O/Wt Last Vital Signs Resp 22 H 05/19/22 12:26 BP 135/112 05/19/22 12:26 Weight last 48 hrs Weight 74.843 kg Physical Exam Const: COMMON NORMALS: no acute distress and patient oriented x3 HENMT: COMMON NORMALS: normocephalic HEAD & SCALP: normocephalic Neck/C-Spine: COMMON NORMALS: no JVD Resp: COMMON NORMALS: normal respiratory effort, No retractions, No use of accessory muscles and clear to auscultation bilaterally AUSCULTATION: clear to auscultation bilaterally Cardio: COMMON NORMALS: no JVD, regular rate, regular rhythm, S1 normal heart sound present and S2 normal heart sound present RATE: regular rate RHYTHM: regular rhythm HEART SOUNDS: S1 normal heart sound present and S2 normal heart sound present GI: PALPATION: Yes Soft to palpation and Yes No hepatosplenomegaly present OTHER: Abdomen soft, slightly distended, diffuse bowel abdominal pain upon palpation, good bowel sounds, no guarding, no rebound, no rigidity Extremity: COMMON NORMALS: capillary refill normal, no clubbing, cyanosis or edema, no calf tenderness and no pedal edema Neuro: COMMON NORMALS: patient oriented x3, CN's II-XII intact bilaterally, moves all extremities and no focal motor deficits Psych: COMMON NORMALS: mental status grossly normal Data : 05/19/22 13:37 05/19/22 13:37 A&P Assessment and plan (1) Bloody stools: Status: Acute (2) JAVAD (acute kidney injury): Status: Acute (3) Dehydration: Status: Acute Plan Bloody stools -Hemoglobin within normal limits -Hemoccult stool pending -Monitor hemoglobin -Protonix, Carafate -SCDs for DVT prophylaxis -Full code -Possible infectious diarrhea, C. difficile ordered, given diffuse abdominal pain, CT scan no acute findings, will start on Zosyn Dehydration JAVAD, IV fluids Hyponatremia, likely secondary dehydration IV fluids Pro-Andry 3.43, etiology unclear, antibiotics as above Attestations Medical Necessity Statement*: Patient requires hospitalization, inpatient, greater than 2 midnights, for JAVAD, dehydration, bloody stools Coding Level of Care Code Acute Triple Valve Mechanic for [facility] Diagnoses Bloody stools K92.1 JAVAD (acute kidney injury) N17.9 Dehydration E86.0
[2022-05-19 18:10] VITALS: BP 164/106; PULSE 102; RESP 20; O2SAT 97
[2022-05-19 20:00] VITALS: BP 133/86; PULSE 106; RESP 19; TEMP 38.3; O2SAT 97
[2022-05-19 20:45] LABS: Hematocrit 46.9 % (37.0-47.0); Mean Corpuscular HGB Conc 34.1 g/dL (30.0-36.0); Mean Corpuscular Hemoglobin 30.7 pg (28.0-34.0); Mean Platelet Volume 10.9 fL (7.4-10.4); Platelet Count 176 10^3/cmm (130-400); Red Blood Count 5.21 10^6/uL (4.1-5.3); Red Cell Distribution Width 15.4 % (12.1-15.1); White Blood Count 12.4 10^3/uL (4.0-10.0)
[2022-05-19 20:57] LABS: INR 0.94 (0.8-1.2)
[2022-05-19 21:03] LABS: Lactate (Lactic Acid level) 3.2 mmol/L (0.5-2.2)
[2022-05-19 21:17] LABS: Blood Urea Nitrogen 24 mg/dL (8-23); Calcium 7.7 mg/dL (8.5-10.5); Carbon Dioxide 14 mmol/L (22-29); Chloride 100 mmol/L (98-107); Glucose 99 mg/dL (65-115); Osmolality Calculated 278 mOsm/kg (285-295); Sodium 132 mmol/L (136-145)
[2022-05-19 21:19] LABS: Anion Gap 22.2 (5-19); Potassium 4.2 mmol/L (3.5-5.1)
[2022-05-19 21:27] LABS: Thyroid Stimulating Hormone 0.53 uIU/mL (0.27-4.20)
[2022-05-19] MEDS: pantoprazole 40 mg SDV IVP (21:48)
[2022-05-19 22:00] VITALS: PULSE 110
[2022-05-19 22:02] LABS: Absolute Neutrophil 11.3 10^3/cmm (1.4-6.5); Absolute Segmented Neutrophil 10.7 10/cmm (1.6-7.1); Band Neutrophils Absolute 0.6 10^3/cmm (0.0-1.2); Eosinophils 0 %; Lymphocytes 3 %; Lymphocytes Absolute 0.5 10^3/cmm (1.2-3.4); Monocytes Absolute 0.6 10^3/cmm (0.1-0.6); Platelet Estimate Normal (Normal); Segmented Neutrophils 86 %; Total Cells Counted 100 (0-100)
[2022-05-19 22:10] VITALS: BMI 21.0
[2022-05-19 23:18] VITALS: BP 114/75; PULSE 108; RESP 20; TEMP 36.8
[2022-05-20] VITALS (9 sets, daily range): BP systolic 111–143; BP diastolic 79–87; PULSE 68–98; RESP 17–20; TEMP 36.3–37.1; O2SAT 94–98
[2022-05-20 04:23] LABS: Basophils % 0.2 %; Eosinophils % 0.1 %; Hematocrit 47.3 % (37.0-47.0); Hemoglobin 14.8 g/dL (11.5-15.3); Lymphocytes # 0.9 10^3/uL (0.8-4.8); Lymphocytes % 7.9 %; Mean Corpuscular HGB Conc 31.3 g/dL (30.0-36.0); Mean Platelet Volume 10.8 fL (7.4-10.4); Monocytes # 1.1 10^3/uL (0.2-0.9); Monocytes % 9.8 %; Neutrophils # 9.03 10^3/uL (1.8-7.7); Neutrophils % 81.5 %; Nucleated Red Blood Cells % 0 %; Platelet Count 164 10^3/cmm (130-400); Red Blood Count 4.78 10^6/uL (4.1-5.3); Red Cell Distribution Width 15.9 % (12.1-15.1); White Blood Count 11.1 10^3/uL (4.0-10.0)
[2022-05-20 04:59] LABS: Procalcitonin 4.09 ng/mL (0-0.5)
[2022-05-20] MEDS: piperacillin-tazobactam 3.375 GM in sodium chloride 0.9% (plus) 50 ML IV ×3 (05:12→21:27)
[2022-05-20 05:15] LABS: Alanine Aminotransferase 18 U/L (0-33); Albumin Level 2.7 g/dL (3.5-5.2); Alkaline Phosphatase 74 IU/L (35-105); Aspartate Amino Transferase 64 U/L (0-32); Blood Urea Nitrogen 22 mg/dL (8-23); Calcium 7.6 mg/dL (8.5-10.5); Carbon Dioxide 17 mmol/L (22-29); Chloride 104 mmol/L (98-107); Globulin 3.2 g/dL (1.3-4.6); Glomerular Filtration Rate 45.4 mL/min (90-130); Glucose 93 mg/dL (65-115); Magnesium 1.9 mg/dL (1.7-2.3); Osmolality Calculated 287 mOsm/kg (285-295); Phosphorus 2.8 mg/dL (2.5-4.5); Sodium 137 mmol/L (136-145); Total Bilirubin 0.4 mg/dL (0.15-1.2); Total Protein 5.9 g/dL (6.6-8.7)
[2022-05-20] MEDS: sucralfate 1 gm Tablet PO ×2 (06:45→18:12)
[2022-05-20] MEDS: sodium chloride 0.9% 1,000 ML 100 ML IV ×2 (06:47→18:13)
[2022-05-20] MEDS: pantoprazole 40 mg SDV IVP ×2 (10:07→21:27)
[2022-05-20] MEDS: morphine 4 mg/mL SDV 1 mL 2 MG IVP ×2 (14:29→21:34)
--- NOTE | 2022-05-20 17:53 | PM.PN ---
Subjective Subjective: Still some abdominal pain, but less tender on presentation. Blood mixed with stool in her diapers. Never had a colonoscopy. At home lives with her daughter who has not been ill. Draws [employer] water. Vitals/I&O/Wt Last Vital Signs Temp 98.4 F 05/20/22 16:00 Pulse 96 05/20/22 16:00 Resp 18 05/20/22 16:00 BP 124/87 05/20/22 16:00 Pulse Ox 95 05/20/22 15:59 O2 Del Method 05/20/22 15:59 05/20/22 05/20/22 05/20/22 06:59 14:59 22:59 Intake Total 948.333 / 1441.666 50 / 50 50 / 100 Output Total 200 / 200 Balance 948.333 / 1441.666 -150 / -150 50 / -100 Weight last 48 hrs Weight 57.425 kg Weight 74.843 kg Physical Exam Const: COMMON NORMALS: patient oriented x3 and alert GENERAL APPEARANCE: cooperative ORIENTATION/CONSCIOUSNESS: Yes awake HENMT: COMMON NORMALS: oropharynx normal Neck/C-Spine: COMMON NORMALS: no JVD Resp: COMMON NORMALS: normal respiratory effort and clear to auscultation bilaterally AUSCULTATION: clear to auscultation bilaterally Cardio: COMMON NORMALS: no JVD, regular rhythm, S1 normal heart sound present, S2 normal heart sound present and No murmurs present (Cardio) RHYTHM: regular rhythm HEART SOUNDS: S1 normal heart sound present and S2 normal heart sound present GI: COMMON NORMALS: Normal to inspection, nondistended, normoactive bowel sounds present and Soft to palpation PALPATION: Yes Soft to palpation and Yes Tenderness to palpation present (GI) Details: other (Upper abdomen) Extremity: COMMON NORMALS: no joint enlargement and no pedal edema Neuro: COMMON NORMALS: patient oriented x3 and moves all extremities SENSORIUM/ORIENTATION: Yes alert Skin: COMMON NORMALS: no rashes or lesions noted GENERAL SKIN EXAM: no rashes or lesions noted Data : 05/20/22 03:15 05/20/22 03:15 Micro: Microbiology 05/19/22 20:00 Stool Lactoferrin - Final Stool Enteric Pathogens (PCR) - Final Parasite Antigen Panel - Final Occult Blood (FIT) - Final 05/19/22 21:30 MRSA Culture - Final Nose 05/19/22 18:19 Blood Culture - Preliminary Blood SPECIMEN COLLECTED 05/19/22 18:25 Blood Culture - Preliminary Blood SPECIMEN COLLECTED 05/19/22 14:03 C.difficile Toxin B Gene (PCR) - Final Stool Routine Collection A&P Assessment and plan (1) Bloody stools: Still abdominal tenderness, loose stools mixed with blood. Suspected colitis. Diverticular disease noted on CT. Limited exam due to lack of contrast. Has never had a colonoscopy. C. difficile negative. Follow-up other stool studies. Continue empiric antibiotics for now. After recovers from acute phase, may benefit from colonoscopy. Status: Acute (2) JAVAD (acute kidney injury): Improving. Poor p.o. intake. Continue fluid challenge for now. Hold lisinopril. Status: Acute (3) Dehydration: Continue IV fluid for now. Status: Acute Plan Large hiatal hernia Hyponatremia, likely secondary dehydration IV fluids. Improved. Pro-Andry 3.43, etiology unclear, antibiotics as above Attestations Medical Necessity Statement*: Continue admission for assessment of lower GI bleeding, suspected colitis, JAVAD, dehydration. Coding Level of Care Code Acute Hr Analyst for [facility] Fwd Diagnoses Bloody stools K92.1 JAVAD (acute kidney injury) N17.9 Dehydration E86.0
[2022-05-20] MEDS: ondansetron 2 mg/ML SDV 2 mL 4 MG IVP (21:34)
[2022-05-21] VITALS (7 sets, daily range): BP systolic 106–160; BP diastolic 68–93; PULSE 74–90; RESP 16–18; TEMP 36.5–36.8; O2SAT 91–94
[2022-05-21] MEDS: piperacillin-tazobactam 3.375 GM in sodium chloride 0.9% (plus) 50 ML IV (04:46)
[2022-05-21] MEDS: sodium chloride 0.9% 1,000 ML 100 ML IV (04:47)
[2022-05-21 05:07] LABS: Basophils % 0.2 %; Eosinophils % 0.1 %; Hematocrit 40.5 % (37.0-47.0); Hemoglobin 12.9 g/dL (11.5-15.3); Lymphocytes # 1.1 10^3/uL (0.8-4.8); Lymphocytes % 11.3 %; Mean Corpuscular HGB Conc 31.9 g/dL (30.0-36.0); Mean Corpuscular Hemoglobin 30.7 pg (28.0-34.0); Mean Corpuscular Volume 96.4 fl (81-99); Mean Platelet Volume 10.9 fL (7.4-10.4); Monocytes # 0.7 10^3/uL (0.2-0.9); Monocytes % 7.4 %; Neutrophils % 80.6 %; Nucleated Red Blood Cells % 0 %; Platelet Count 153 10^3/cmm (130-400); Red Cell Distribution Width 16.4 % (12.1-15.1); White Blood Count 9.6 10^3/uL (4.0-10.0)
[2022-05-21 05:30] LABS: Alanine Aminotransferase 18 U/L (0-33); Albumin Level 2.4 g/dL (3.5-5.2); Alkaline Phosphatase 63 IU/L (35-105); Anion Gap 16.9 (5-19); Aspartate Amino Transferase 57 U/L (0-32); Blood Urea Nitrogen 18 mg/dL (8-23); Calcium 7.9 mg/dL (8.5-10.5); Carbon Dioxide 19 mmol/L (22-29); Chloride 109 mmol/L (98-107); Globulin 3.1 g/dL (1.3-4.6); Glomerular Filtration Rate 50.2 mL/min (90-130); Glucose 80 mg/dL (65-115); Magnesium 1.5 mg/dL (1.7-2.3); Osmolality Calculated 293 mOsm/kg (285-295); Phosphorus 2.2 mg/dL (2.5-4.5); Potassium 3.9 mmol/L (3.5-5.1); Sodium 141 mmol/L (136-145); Total Bilirubin 0.3 mg/dL (0.15-1.2); Total Protein 5.5 g/dL (6.6-8.7)
[2022-05-21] MEDS: pantoprazole 40 mg SDV IVP (08:58)
[2022-05-21] MEDS: magnesium sulfate premix 2 GM/50 ML PIGGYBACK IV (08:58)
--- NOTE | 2022-05-21 13:50 | PM.DCS ---
Discharge Providers Date of Admission: 05/19/22 16:32 Date of Discharge: May 21, 2022 Attending Provider at Admission: Alberto Brown MD Attending Provider at Discharge: Igor Brush Primary Care Provider: Jahaira Lu MD Diagnoses at Discharge Discharge Diagnosis (1) Bloody stools: Status: Acute (2) JAAVD (acute kidney injury): Status: Acute (3) Dehydration: Status: Acute Reason for Visit Reason for Visit: Bloody Stool, Weakness Hospital Course Hospital Course Pleasant 62-year-old lady presented for assessment management due to abdominal pain, diarrhea, blood mixed into stool in the diaper, on presentation with fever 100.9, cytosis 12.3, possible sepsis with endorgan dysfunction of colonic source with infectious diarrhea. With lactic acidosis of 3.8 as well as acute kidney injury, creatinine of 2 compared to previously normal baseline. CT abdomen pelvis with with noted early colonic diverticular formation. No acute bowel findings otherwise although exam limited due to lack of contrast. Prominent hiatal hernia and probable GE reflux. Minimal distal aortic ectasia, other incidental findings in the report. She was empirically treated with Zosyn while in the hospital. Stool studies were positive for lactoferrin, occult blood, negative for C. difficile and negative on bacterial and parasite panels. Lisinopril was held. She received fluid challenge with continued IV hydration due to dehydration and initially lack of oral intake. Her symptoms improved, she still having abdominal discomfort, diarrhea, but only small spot of blood in the stool yesterday, no blood today. Abdominal pain is improving. She is tolerating clear liquids. She received replacement for hypomagnesemia. She is overall feeling better and feels comfortable returning home to complete empiric antibiotic therapy there with Flagyl and ciprofloxacin. She has never had a colonoscopy. Due to this she is asked to follow-up with surgery in office set up for colonoscopy in 6 weeks. She knows to return to hospital in case of any recurrence of bleeding or any other concerning symptoms. Please follow-up your blood counts as well as follow her recovery at next visit. Please reassess renal function. Magnesium level. She is asked for now to continue holding lisinopril. Of note her IV was noted infiltrated in the left forearm with small localized swelling for which discharge has been delayed for observation, and which has been improving with elevation. Please reassess. Physical Exam Const: COMMON NORMALS: patient oriented x3 and alert GENERAL APPEARANCE: cooperative ORIENTATION/CONSCIOUSNESS: Yes awake HENMT: COMMON NORMALS: oropharynx normal Neck/C-Spine: COMMON NORMALS: no JVD Resp: COMMON NORMALS: normal respiratory effort and clear to auscultation bilaterally AUSCULTATION: clear to auscultation bilaterally Cardio: COMMON NORMALS: no JVD, regular rhythm, S1 normal heart sound present, S2 normal heart sound present and No murmurs present (Cardio) RHYTHM: regular rhythm HEART SOUNDS: S1 normal heart sound present and S2 normal heart sound present GI: COMMON NORMALS: Normal to inspection, nondistended, normoactive bowel sounds present and Soft to palpation PALPATION: Yes Soft to palpation and No Tenderness to palpation present (GI) Extremity: COMMON NORMALS: no joint enlargement and no pedal edema Neuro: COMMON NORMALS: patient oriented x3 and moves all extremities SENSORIUM/ORIENTATION: Yes alert Skin: COMMON NORMALS: no rashes or lesions noted GENERAL SKIN EXAM: no rashes or lesions noted Discharge Data Studies Completed and Pending Completed Studies During Hospitalization Category Date Time Status CT abdomen pelvis wo con [id number] Urgent Cat Scan 05/19/22 14:18 Completed Pending at discharge Category Date Time Status Blood Culture Stat Lab 05/19/22 18:19 Results Complete Blood Count w/Auto AM LABS Lab 05/22/22 04:00 Ordered Comprehensive Metabolic Panel AM LABS Lab 05/22/22 04:00 Ordered Magnesium AM LABS Lab 05/22/22 04:00 Ordered Phosphorus AM LABS Lab 05/22/22 04:00 Ordered Radiology Impressions Abdomen/Pelvis CT 05/19/22 14:18 IMPRESSION: 1. Early colonic diverticular formation. No acute bowel findings otherwise. Somewhat limited exam due to lack of contrast. 2. Prominent hiatal hernia and probable GE reflux. 3. Cardiopulmonary findings as above. 4. Minimal distal aortic ectasia and other nonacute findings as described. Laboratory Results WBC 9.6 10^3/uL (4.0-10.0) 05/21/22 04:15 RBC 4.20 10^6/uL (4.1-5.3) 05/21/22 04:15 Hgb 12.9 g/dL (11.5-15.3) 05/21/22 04:15 Hct 40.5 % (37.0-47.0) 05/21/22 04:15 MCV 96.4 fl (81-99) 05/21/22 04:15 MCH 30.7 pg (28.0-34.0) 05/21/22 04:15 MCHC 31.9 g/dL (30.0-36.0) 05/21/22 04:15 RDW 16.4 % (12.1-15.1) H 05/21/22 04:15 Plt Count 153 10^3/cmm (130-400) 05/21/22 04:15 MPV 10.9 fL (7.4-10.4) H 05/21/22 04:15 Neut % (Auto) 80.6 % 05/21/22 04:15 Lymph % (Auto) 11.3 % 05/21/22 04:15 Cecil % (Auto) 7.4 % 05/21/22 04:15 Eos % (Auto) 0.1 % 05/21/22 04:15 Baso % (Auto) 0.2 % 05/21/22 04:15 Neut # (Auto) 7.70 10^3/uL (1.8-7.7) 05/21/22 04:15 Lymph # (Auto) 1.1 10^3/uL (0.8-4.8) 05/21/22 04:15 Cecil # (Auto) 0.7 10^3/uL (0.2-0.9) 05/21/22 04:15 Eos # (Auto) 0.0 10^3/uL (0.0-0.8) 05/21/22 04:15 Baso # (Auto) 0.0 10^3/uL (0.0-0.1) 05/21/22 04:15 Nucleated RBC % (auto) 0 % 05/21/22 04:15 Total Counted 100 (0-100) 05/19/22 20:30 Atypical Lymphs % 1.0 % (0-5) 05/19/22 20:30 Absolute Neutrophils 11.3 10^3/cmm (1.4-6.5) H 05/19/22 20:30 Segmented Neutrophils 86 % 05/19/22 20:30 Abs Segm Neuts (Man) 10.7 10/cmm (1.6-7.1) H 05/19/22 20:30 Band Neutrophils 5.0 % 05/19/22 20:30 Abs Band Neuts (Man) 0.6 10^3/cmm (0.0-1.2) 05/19/22 20:30 Absolute Lymphocytes 0.5 10^3/cmm (1.2-3.4) L 05/19/22 20:30 Lymphocytes (Manual) 3 % 05/19/22 20:30 Monocytes (Manual) 5.0 % 05/19/22 20:30 Absolute Monocytes 0.6 10^3/cmm (0.1-0.6) 05/19/22 20:30 Eosinophils (Manual) 0 % 05/19/22 20:30 Absolute Eosinophils 0.0 10^3/cmm (0.0-0.7) 05/19/22 20:30 Basophils (Manual) 0.0 % 05/19/22 20:30 Absolute Basophils 0.0 10^3/cmm (0.0-0.2) 05/19/22 20:30 Nucleated RBCs # 0.0 /100WBC 05/21/22 04:15 Platelet Estimate Normal (Normal) 05/19/22 20:30 PT 12.90 SECONDS (12.1-14.9) 05/19/22 20:30 INR 0.94 (0.8-1.2) 05/19/22 20:30 Sodium 141 mmol/L (136-145) 05/21/22 04:15 Potassium 3.9 mmol/L (3.5-5.1) 05/21/22 04:15 Chloride 109 mmol/L (98-107) H 05/21/22 04:15 Carbon Dioxide 19 mmol/L (22-29) L 05/21/22 04:15 Anion Gap 16.9 (5-19) 05/21/22 04:15 BUN 18 mg/dL (8-23) 05/21/22 04:15 Creatinine 1.1 mg/dL (0.5-0.9) H 05/21/22 04:15 GFR Calculation 50.2 mL/min (90-130) L 05/21/22 04:15 Glucose 80 mg/dL (65-115) 05/21/22 04:15 Calculated Osmolality 293 mOsm/kg (285-295) 05/21/22 04:15 Lactate 3.2 mmol/L (0.5-2.2) H 05/19/22 20:30 Calcium 7.9 mg/dL (8.5-10.5) L 05/21/22 04:15 Phosphorus 2.2 mg/dL (2.5-4.5) L 05/21/22 04:15 Magnesium 1.5 mg/dL (1.7-2.3) L 05/21/22 04:15 Total Bilirubin 0.3 mg/dL (0.15-1.2) 05/21/22 04:15 AST 57 U/L (0-32) H 05/21/22 04:15 ALT 18 U/L (0-33) 05/21/22 04:15 Alkaline Phosphatase 63 IU/L (35-105) 05/21/22 04:15 C-Reactive Protein 10.6 mg/L (0.0-4.9) H 05/19/22 13:37 Total Protein 5.5 g/dL (6.6-8.7) L 05/21/22 04:15 Albumin 2.4 g/dL (3.5-5.2) L 05/21/22 04:15 Globulin 3.1 g/dL (1.3-4.6) 05/21/22 04:15 Procalcitonin 4.09 ng/mL (0-0.5) H 05/20/22 03:15 TSH 0.53 uIU/mL (0.27-4.20) 05/19/22 20:30 Urine Color Yellow (Yellow) 05/19/22 15:19 Urine Appearance Hazy (CLEAR) A 05/19/22 15:19 Urine pH 6 (5-7) 05/19/22 15:19 Ur Specific [place] 1.010 (1.005-1.030) 05/19/22 15:19 Urine Protein Trace (Negative) 05/19/22 15:19 Urine Glucose (UA) Norm (Normal) 05/19/22 15:19 Urine Ketones Negative (Negative) 05/19/22 15:19 Urine Blood 3+ (Negative) H 05/19/22 15:19 Urine Nitrate Negative (Negative) 05/19/22 15:19 Urine Bilirubin Neg (Negative) 05/19/22 15:19 Urine Urobilinogen Norm mg/dL (Negative) 05/19/22 15:19 Ur Leukocyte Esterase Trace (Negative) H 05/19/22 15:19 Urine RBC 5-10 /hpf (0-2) H 05/19/22 15:19 Urine WBC 5-10 /hpf (0-5) H 05/19/22 15:19 Ur Squamous Epith Cells 0-4 /hpf (0-5) H 05/19/22 15:19 Amorphous Sediment Not Reportable 05/19/22 15:19 Urine Bacteria 2+ /hpf (NONE) H 05/19/22 15:19 Hyaline Casts 0-4 /lpf H 05/19/22 15:19 Coarse Granular Casts 5-10 /lpf H 05/19/22 15:19 Urine Mucus 1+ /hpf 05/19/22 15:19 Vitals Last Vital Signs Temp 97.7 F 05/21/22 11:51 Pulse 74 05/21/22 11:51 Resp 16 05/21/22 11:51 BP 128/79 05/21/22 11:51 Pulse Ox 91 05/21/22 11:51 O2 Del Method 05/21/22 11:51 Discharge Plan Discharge Patient Disposition: Home Condition: Stable Prescriptions: New ciprofloxacin HCl 500 mg tablet 500 mg PO BID Qty: 14 0RF metronidazole 500 mg tablet 500 mg PO Q8H 7 Days Qty: 21 0RF pantoprazole 40 mg tablet,delayed release (DR/EC) 40 mg PO DAILY 42 Days Qty: 42 0RF magnesium 250 mg tablet 250 mg PO DAILY Qty: 30 0RF ondansetron 4 mg tablet,disintegrating 4 mg PO Q8H PRN (Reason: nausea and vomiting) 4 Days Qty: 12 0RF Discontinued lisinopril 40 mg tablet 40 mg PO DAILY Discharge Orders: Discharge Order (Routine); Ordered 05/21/22 Ordered By: Igor Brush Referrals: Jahaira Lu MD [Primary Care Provider] - 4-7 days Luke Xavier DO [Physician] - 6 Weeks (Colonoscopy) Discharge Diet: Advance as tolerated and Clear Liquid Discharge Activity: Increase activity as tolerated Patient Instructions: Ciprofloxacin (By mouth), Metronidazole (By mouth), Hiatal Hernia (GEN), Acute Kidney Injury (GEN), Hypomagnesemia (GEN), Colitis (ED) Activity Restrictions/Additional Instructions: Please complete antibiotic therapy for colitis, follow-up with surgery for assessment for colonoscopy after resolution in 6 weeks due to presence of blood in the stool and never having had a colonoscopy. Please have your primary doctor reassess your blood counts and your condition at next visit within 4-7 days. Elevate left upper extremity where IV had infiltrated to help continued improvement in swelling. In case of developing any concerning symptoms like fevers, worsening abdominal pain, worsening blood in your stool, inability to eat or drink, please return to ER. Due to acute kidney injury seen also initially on presentation which has been so far improving, please continue to hold lisinopril. Discuss with your primary doctor if lisinopril will be safe to resume once kidney function is stabilized. Please have your primary doctor check your kidney function at next visit. Please have your primary doctor check your magnesium level. Please also discuss with your primary doctor regarding incidentally seen on CT prominent hiatal hernia. Discharge Attestations Time Spent in Discharge Care*: greater than 30 min Quality Metrics Clinical Quality Measures [ No reported AMI, CVA or VTE this stay] Coding Level of Care Code Acute Chg [facility] note Diagnoses Bloody stools K92.1 JAVAD (acute kidney injury) N17.9 Dehydration E86.0
--- NOTE | 2022-05-21 14:45 | PC.NURSE ---
Left Pt left before we could give her discharge instructions, daughter tried to stop her and was unable to. We are trying to get ahold of her by phone. We have tried several numbers that was on her contact but to unavail. We will continue to try to get ahold of her to give her discharge instructions over the phone.
--- NOTE | 2022-05-21 15:34 | PC.NURSE ---
PATIENT LEFT WITHOUT DISCHARGE INSTRUCTIONS. DAUGHTER CALLED BACK, THIS NURSE WENT OVER DISCHARGE INSTRUCTIONS OVER THE PHONE AND ALSO MAILED THE DISCHARGE TO PATIENT.
== END 2022-05-21 14:00 | disposition home or self-care (01) | DRG 378 ==
LOC: ER 16:16 → MEDSURG 17:37
PROVIDERS: Admitting Provider Family Medicine; Emergency Provider Student in an Organized Health Care Education/Training Program; PCP Family Medicine; Visit Provider Internal Medicine
DX: K92.1 Melena (principal); E87.1 Hypo-osmolality and hyponatremia; E87.2 Acidosis; N17.9 Acute kidney failure, unspecified; E86.0 Dehydration; K44.9 Diaphragmatic hernia without obstruction or gangrene; E83.42 Hypomagnesemia; K21.9 Gastro-esophageal reflux disease without esophagitis; I10 Essential (primary) hypertension; J44.9 Chronic obstructive pulmonary disease, unspecified; Z87.891 Personal history of nicotine dependence; K52.9 Noninfective gastroenteritis and colitis, unspecified
CPT/HCPCS: 36415; 74176; 80048; 80053; 81001; 82274; 83605; 83630; 83735; 84100; 84145; 84443; 85007; 85025; 85610; 86140; 87040; 87086; 87493; 87506; 87641; 96365; 96367; 99285; C9113; J2270; J2405; J2543; J3370; J3475; J7030; J7050

== ENCOUNTER → 2022-07-15 14:58 | Outpatient (BNVA) | payer MEDICAID, SELFPAY | PROVIDERS: PCP Family Medicine; Visit Provider Surgery | DX: K92.1 Melena (principal) | CPT/HCPCS: 99203 ==

== ENCOUNTER 2023-04-08 18:48 | Emergency (ER) | payer MEDICAID, SELFPAY ==
--- NOTE | 2023-04-08 18:53 | ECG_ITS ---
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 Measurements Intervals [place] Rate: 94 P: 100 [place]: 154 QRS: -7 QRSD: 72 T: 34 QT: 343 QTc: 429 Interpretive Statements SINUS RHYTHM LOW QRS VOLTAGE IN PRECORDIAL LEADS [QRS DEFLECTION < 1.0 mV IN CHEST LEADS] PATTERN CONSISTENT WITH PULMONARY DISEASE POSSIBLE RIGHT VENTRICULAR CONDUCTION DELAY [RSR (QR) IN V1/V2] MODERATE ST DEPRESSION [0.05+ mV ST DEPRESSION] Compared to ECG 11/25/2021 20:56:01 Low QRS voltage now present ST (T wave) deviation now present T-wave abnormality no longer present Electronically Signed On 04-09-2023 0:21:17 CDT by Ambar Pimentel M.D. [id number]
[2023-04-08 18:58] VITALS: BP 151/100; PULSE 82; RESP 18; TEMP 36.6; O2SAT 95
--- NOTE | 2023-04-08 19:12 | ED_ITS ---
HPI - Chest Pain General: Chief Complaint: Chest Pain Stated Complaint: CP Time Seen by Provider: 04/08/23 19:11 History of Present Illness: Patient presents to the ER with complaints of chest pain started in the left side. It is worse when she takes a big deep breath and also worse with palpitation. Patient states she has never had this pain before. Onset (ago): hour(s) (2 hours ago) Timing of current episode: constant Prior episodes: No Pain location: left chest Severity: moderate Quality: sharp Relieving factors: nothing Exacerbating factors: inspiration and palpation Review of Systems General: Reports: 10 or more systems reviewed and unremarkable except in HPI and below PFSH ED PFSH: Medical History COPD (chronic obstructive pulmonary disease) GERD (gastroesophageal reflux disease) HTN (hypertension) Smoker Surgical History Hx of appendectomy Hx of cholecystectomy Hx of hysterectomy Hx of oophorectomy Family History Father CAD (coronary artery disease) Mother CAD (coronary artery disease) Cancer Denies family history of Diabetes Stroke Social History Smoking and tobacco status: current every day smoker (4 to 5 cigs a day ) Alcohol intake: never Substance/Drug Use: never Physical Exam Const: COMMON NORMALS: no acute distress, patient oriented x3, no limitations, healthy appearing and alert HENMT: COMMON NORMALS: normocephalic, hearing grossly normal bilaterally, ex ternal ears normal, Normal external nose present and moist oral mucous membranes HEAD & SCALP: normocephalic NOSE: Normal external nose present EXTERNAL EAR: Yes external ears normal Eye: COMMON NORMALS: Equal, round and reactive pupils present, EOMs intact bilaterally, conjunctivae normal and no scleral icterus CONJUNCTIVA: Yes conjunctivae normal PUPIL: Yes Equal, round and reactive pupils present Neck/C-Spine: COMMON NORMALS: full ROM, no lymphadenopathy, no meningeal signs, no JVD and Thyroid normal THYROID: Thyroid normal Chest: OTHER: Tender to palpation over left chest region reproduces patient's pain. Resp: COMMON NORMALS: normal respiratory effort, No retractions, No use of accessory muscles and clear to auscultation bilaterally AUSCULTATION: clear to auscultation bilaterally Cardio: COMMON NORMALS: no JVD, regular rate, regular rhythm, S1 normal heart sound present, S2 normal heart sound present, No gallops present (Cardio), No clicks present (Cardio), No murmurs present (Cardio) and No rub (Cardio) RATE: regular rate RHYTHM: regular rhythm HEART SOUNDS: S1 normal heart sound present and S2 normal heart sound present GI: COMMON NORMALS: Normal to inspection, nondistended, normoactive bowel sounds present, Soft to palpation, non-tender, No hepatosplenomegaly present and no masses PALPATION: Yes Soft to palpation and Yes No hepatosplenomegaly present : COMMON NORMALS: Yes no CVA tenderness BLADDER/KIDNEY EXAM: Yes no CVA tenderness Back/Pelvis: COMMON NORMALS: no CVA tenderness Neuro: COMMON NORMALS: patient oriented x3 SENSORIUM/ORIENTATION: Yes alert MENINGEAL SIGNS: Yes no meningeal signs Course Vital Signs: Vital signs: Vital Signs Temperature 97.9 F 04/08/23 18:58 Pulse Rate 103 H 04/08/23 21:18 Respiratory Rate 16 04/08/23 21:18 Blood Pressure 145/90 04/08/23 21:18 Pulse Oximetry 95 04/08/23 21:18 Oxygen Delivery Me thod Room Air 04/08/23 18:58 MDM - Chest Pain Medical Decision Making Patient presents to the ER with complaints of left-sided chest pain that persisted all day long. Pain is worse when she takes a big deep breath or is palpated over her left chest. Pain is stabbing in nature. Cardiac work-up was obtained which EKGs showed no acute changes. Lab work revealed a troponin of 15 a 2-hour troponin of 13.9 for delta troponin of 1.07 negative. Some chest x-ray shows mild to moderate hiatal hernia small pleural effusion and cardiomegaly. Patient was given 30 mg Toradol IV and this reduced her pain to where she can sleep comfortably. These findings were described to the patient in detail and is felt not to be cardiac in nature more likely chest wall. Patient be discharg ed home to follow-up with her PCP in approximately 7 to 10 days. Differential Diagnosis Unlikely acute massive pulmonary embolism, acute respiratory failure, acute myocardial infarction, cardiac arrest or sudden cardiac Medical Records I reviewed the patient's medical records. Lab Data I reviewed the patient's lab results. 04/08/23 19:20 04/08/23 19:20 Radiology Impressions Chest X-Ray 04/08/23 20:25 IMPRESSION: 1. Small to moderate hiatal hernia. 2. Small pleural effusion. 3. Cardiomegaly. Laboratory Results WBC 10.0 10^3/uL (4.0-10.0) 04/08/23 19:20 RBC 5.09 10^6/uL (4.1-5.3) 04/08/23 19:20 Hgb 15.5 g/dL (11.5-15.3) H 04/08/23 19:20 Hct 48.4 % (37.0-47.0) H 04/08/23 19:20 MCV 95.1 fl (81-99) 04/08/23 19:20 MCH 30.5 pg (28.0-34.0) 04/08/23 19:20 MCHC 32.0 g/dL (30.0-36.0) 04/08/23 19:20 RDW 15.0 % (12.1-15.1) 04/08/23 19:20 Plt Count 221 10^3/cmm (130-400) 04/08/23 19:20 MPV 9.9 fL (7.4-10.4) 04/08/23 19:20 Neut % (Auto) 77.4 % 04/08/23 19:20 Lymph % (Auto) 11.6 % 04/08/23 19:20 [place] % (Auto) 9.0 % 04/08/23 19:20 Eos % (Auto) 1.3 % 04/08/23 19:20 Baso % (Auto) 0.2 % 04/08/23 19:20 Neut # (Auto) 7.75 10^3/uL (1.8-7.7) H 04/08/23 19:20 Lymph # (Auto) 1.2 10^3/uL (0.8-4.8) 04/08/23 19:20 [place] # (Auto) 0.9 10^3/uL (0.2-0.9) 04/08/23 19:20 Eos # (Auto) 0.1 10^3/uL (0.0-0.8) 04/08/23 19:20 Baso # (Auto) 0.0 10^3/uL (0.0-0.1) 04/08/23 19:20 Nucleated RBC % (auto) 0 % 04/08/23 19:20 Nucleated RBCs # 0.0 /100WBC 04/08/23 19:20 PT 12.60 SECONDS (12.1-14.9) 04/08/23 19:20 INR 0.92 (0.8-1.2) 04/08/23 19:20 Sodium 138 mmol/L (136-145) 04/08/23 19:20 Potassium 3.8 mmol/L (3.5-5.1) 04/08/23 19:20 Chloride 101 mmol/L (98-107) 04/08/23 19:20 Carbon Dioxide 26 mmol/L (22-29) 04/08/23 19:20 Anion Gap 14.8 (5-19) 04/08/23 19:20 BUN 13 mg/dL (8-23) 04/08/23 19:20 Creatinine 0.8 mg/dL (0.5-0.9) 04/08/23 19:20 GFR Calculation 72.2 mL/min (90-130) L 04/08/23 19:20 Glucose 111 mg/dL (65-115) 04/08/23 19:20 Calculated Osmolality 287 mOsm/kg (285-295) 04/08/23 19:20 Calcium 8.8 mg/dL (8.5-10.5) 04/08/23 19:20 Total Bilirubin 0.4 mg/dL (0.15-1.2) 04/08/23 19:20 AST 19 U/L (0-32) 04/08/23 19:20 ALT 11 U/L (0-33) 04/08/23 19:20 Alkaline Phosphatase 110 U/L (35-105) H 04/08/23 19:20 Troponin T Baseline 15 ng/L (0-10) H 04/08/23 19:20 Troponin T 120 Minute 13.93 ng/L (0-10) H 04/08/23 20:50 Delta Troponin T -1.07 ABS# (0-10) L 04/08/23 20:50 Total Protein 7.5 g/dL (6.6-8.7) 04/08/23 19:20 Albumin 3.9 g/dL (3.5-5.2) 04/08/23 19:20 Globulin 3.6 g/dL (1.3-4.6) 04/08/23 19:20 Lipase 38 U/L (13-60) 04/08/23 19:20 EKG Data EKG 1: I personally reviewed and interpreted this EKG as follows: EKG interpretation date: 04/08/23 EKG interpretation time: 19:08 Prior EKG tracings: not available for review Interpretation: EKG showed ventricular rate [address] interval of 154, QRS duration 72, QTc of 394, sinus rhythm, pattern consistent with pulmonary disease, possible right ventricular conduction delay, moderate ST depression EKG 2: I personally reviewed and interpreted this EKG as follows: EKG interpretation date: 04/08/23 EKG interpretation time: 20:59 Prior EKG tracings: available for review Interpretation: EKG showed sinus tachycardia with occasional PVC with a ventricular rate of 107, CT interval 151, QRS duration 74, QTc of 376, Discharge Plan Discharge Patient Disposition: Home Clinical Impression: Atypical chest pain, Acute chest wall pain Condition: Stable Prescriptions: No Action ciprofloxacin HCl 500 mg tablet 500 mg PO BID Qty: 14 0RF magnesium 250 mg tablet 250 mg PO DAILY Qty: 30 0RF Discharge Orders: Discharge ED (Routine); Ordered 04/08/23 Ordered By: Pritesh Lay Referrals: Jahaira Lu MD [Primary Care Provider] - 1 week Patient Instructions: Chest Pain - Noncardiac Activity Restrictions/Additional Instructions: Please feel free to follow-up with your primary factors physician within the next 1 week. You may be benefited from further evaluation and treatment. If your pain comes back or worsens feel free to come back to the ER. Coding Level of Care Code ED Quality Assurance Consultant for Catracho Tyler
[2023-04-08 19:33] LABS: Basophils % 0.2 %; Eosinophils # 0.1 10^3/uL (0.0-0.8); Eosinophils % 1.3 %; Hematocrit 48.4 % (37.0-47.0); Hemoglobin 15.5 g/dL (11.5-15.3); Lymphocytes # 1.2 10^3/uL (0.8-4.8); Lymphocytes % 11.6 %; Mean Corpuscular Hemoglobin 30.5 pg (28.0-34.0); Mean Corpuscular Volume 95.1 fl (81-99); Mean Platelet Volume 9.9 fL (7.4-10.4); Monocytes # 0.9 10^3/uL (0.2-0.9); Neutrophils # 7.75 10^3/uL (1.8-7.7); Neutrophils % 77.4 %; Nucleated Red Blood Cells % 0 %; Platelet Count 221 10^3/cmm (130-400); Red Blood Count 5.09 10^6/uL (4.1-5.3)
[2023-04-08 19:44] LABS: INR 0.92 (0.8-1.2)
[2023-04-08 19:53] LABS: Alanine Aminotransferase 11 U/L (0-33); Albumin Level 3.9 g/dL (3.5-5.2); Alkaline Phosphatase 110 U/L (35-105); Blood Urea Nitrogen 13 mg/dL (8-23); Calcium 8.8 mg/dL (8.5-10.5); Carbon Dioxide 26 mmol/L (22-29); Chloride 101 mmol/L (98-107); Globulin 3.6 g/dL (1.3-4.6); Glomerular Filtration Rate 72.2 mL/min (90-130); Glucose 111 mg/dL (65-115); Lipase 38 U/L (13-60); Osmolality Calculated 287 mOsm/kg (285-295); Sodium 138 mmol/L (136-145); Total Bilirubin 0.4 mg/dL (0.15-1.2); Total Protein 7.5 g/dL (6.6-8.7)
[2023-04-08 19:58] LABS: Anion Gap 14.8 (5-19); Aspartate Amino Transferase 19 U/L (0-32); Potassium 3.8 mmol/L (3.5-5.1)
[2023-04-08 20:18] LABS: Troponin(5th) Baseline 15 ng/L (0-10)
[2023-04-08] MEDS: ketorolac 30 mg/mL INJ IVP (20:22)
[2023-04-08 20:24] VITALS: BP 152/62; PULSE 107; RESP 16; O2SAT 96
--- NOTE | 2023-04-08 20:25 | XRR_ITS ---
PROCEDURE INFORMATION: Exam: XR Chest Exam date and time: 04/08/2023 8:26 PM Age: 63 years old Clinical indication: Pain; Chest pressure; Additional info: Chest pain TECHNIQUE: Imaging protocol: Radiologic exam of the chest. Views: 1 view. COMPARISON: CR XR chest 1V portable [id number] 11/25/2021 3:48 PM FINDINGS: Lungs: Unremarkable. No consolidation. Pleural spaces: Small pleural effusion. Heart/Mediastinum: Small to moderate hiatal hernia. Cardiomegaly. Bones/joints: Unremarkable. XR/XR chest 1V portable [id number] IMPRESSION: 1. Small to moderate hiatal hernia. 2. Small pleural effusion. 3. Cardiomegaly.
--- NOTE | 2023-04-08 20:59 | ECG_ITS ---
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 Measurements Intervals [place] Rate: 107 P: 51 [place]: 151 QRS: -7 QRSD: 74 T: 2 QT: 313 QTc: 419 Interpretive Statements SINUS TACHYCARDIA WITH OCCASIONAL SUPRAVENTRICULAR PREMATURE COMPLEXES POSSIBLE RIGHT VENTRICULAR CONDUCTION DELAY [RSR (QR) IN V1/V2] ST DEPRESSION, CONSIDER SUBENDOCARDIAL INJURY [0.1+ mV ST DEPRESSION] Compared to ECG 04/08/2023 19:08:46 Sinus rhythm no longer present ST (T wave) deviation still present Electronically Signed On 04-09-2023 0:32:14 CDT by Ambar Pimentel M.D. [id number]
[2023-04-08 21:17] LABS: Troponin 5 2HR 13.93 ng/L (0-10)
--- NOTE | 2023-04-08 21:17 | PC.NURSE ---
ASSUMED CARE AT 2116
[2023-04-08 21:18] VITALS: BP 145/90; PULSE 103; RESP 16; O2SAT 95
[2023-04-08 21:26] LABS: Troponin 5 2HR Delta -1.07 ABS# (0-10)
== END 2023-04-08 21:54 | disposition home or self-care (01) ==
PROVIDERS: Emergency Medicine; Emergency Provider Emergency Medicine; PCP Family Medicine
DX: R07.89 Other chest pain (principal); F17.210 Nicotine dependence, cigarettes, uncomplicated; J44.9 Chronic obstructive pulmonary disease, unspecified; I10 Essential (primary) hypertension
CPT/HCPCS: 36415; 71045; 80053; 83690; 84484; 85025; 85610; 93005; 99285; J1885